=== PATIENT | male | born 1985 | race Caucasian/White ===

== ENCOUNTER 2020-12-10 22:49 | Emergency (ER) | payer OTHER ==
[~2020-12-10] VITALS: Ht 180.3 cm; Wt 102.3 kg
--- NOTE | 2020-12-10 23:13 | PHYS DOC ---
Adult General Chief Complaint Chief Complaint: SHOULDER INJURY [facility] HPI Patient is a 35-year-old male that presents to the emergency department with left shoulder pain, 5 out of 10, dull and achy in nature that happened about 2 hours before coming to the emergency department while he was at work, digging [place] for water. States he was in the middle of digging, and felt a pop in the top of his right shoulder. States that since then he has had pain with range of motion as described. States this is never happened before. Denies any traumas, recent illnesses, chest pain, shortness of breath, abdominal pain, nausea, vomiting. Review of Systems Review of Systems Constitutional: Denies fever or chills [] Eyes: Denies change in visual acuity, redness, or eye pain [] HENT: Denies nasal congestion or sore throat [] Respiratory: Denies cough or shortness of breath [] Cardiovascular: No additional information not addressed in HPI [] GI: Denies abdominal pain, nausea, vomiting, bloody stools or diarrhea [] : Denies dysuria or hematuria [] Musculoskeletal: Denies back pain or joint pain [] Integument: Denies rash or skin lesions [] Neurologic: Denies headache, focal weakness or sensory changes [] Endocrine: Denies polyuria or polydipsia [] All other systems were reviewed and found to be within normal limits, except as documented in this note. Physical Exam Physical Exam Constitutional: Well developed, well nourished, no acute distress, non-toxic appearance. [] HENT: Normocephalic, atraumatic, bilateral external ears normal, oropharynx moist, no oral exudates, nose normal. [] Eyes: conjunctiva normal, no discharge. [] Neck: Normal range of motion, no tenderness, supple, no stridor. [] Cardiovascular:Heart rate regular rhythm Lungs & Thorax: Bilateral breath sounds clear to auscultation [] Skin: Warm, dry, no erythema, no rash. [] Back: No tenderness, Extremities: Patient has tenderness on the superior portion of the left shoulder with pain on range of motion. Patient is able to touch the opposite shoulder and move his left arm behind his back. Neurovascular intact. Neurologic: Alert and oriented X 3, normal motor function, normal sensory function, no focal deficits noted. [] Psychologic: Affect normal, judgement normal, mood normal. [] EKG EKG [] Radiology/Procedures Radiology/Procedures []Left shoulder AP internal axial rotation and scapular x-rays 3 views HISTORY: Left shoulder pain. Injury. FINDINGS: No fracture. No dislocation. No arthritic change. Soft tissues are unremarkable. IMPRESSION: No acute osseous injury. Electronically signed by: Rich Roman MD (12/10/2020 11:51 PM) [facility] Heart Score Risk Factors: Risk Factors: DM, Current or recent (<one month) smoker, HTN, HLP, family history of CAD, obesity. Risk Scores: Risk Factors: DM, Current or recent (<one month) smoker, HTN, HLP, family history of CAD, obesity. Course & Med Decision Making Course & Med Decision Making Patient is a 35-year-old male who presents with left shoulder pain that happened while at work Vital signs not concerning. Physical exam noted above. Imaging with no acute osseous abnormality. Patient denied need for pain medications at this time. Patient placed in sling for pain control. Advised on pain control at home. Advised to follow-up with primary care physician first thing Sunday to discuss ED visit and set up post ER visit. Advised come back to the ED with new or concerning symptoms. Patient grateful, verbalized understanding and agreed with plan of discharge. [] Dragon Disclaimer Dragon Disclaimer This electronic medical record was generated, in whole or in part, using a voice recognition dictation system. Departure Departure: Impression: Primary Impression: Shoulder pain, left Disposition: 01 DC HOME SELF CARE/HOMELESS Condition: GOOD Referrals: PCP,NO (PCP) Patient Instructions: Arm Sling Use, [id number], RICE - Routine Care for Injuries Additional Instructions: Please read the attached information on pain management at home and sling management. Can use Tylenol, ibuprofen, ice and Lidoderm patches [id number] as needed for pain control. Please follow-up first thing Sunday with your primary care physician to discuss your ED visit and need for further evaluation, treatment and imaging. Please come back to the ED with any new or concerning symptoms. BESSIE LARIOS MD Dec 10, 2020 23:13
[2020-12-10 23:20] VITALS: BP 166/95
--- NOTE | 2020-12-10 23:53 | RAD ---
Left shoulder AP internal axial rotation and scapular x-rays 3 views HISTORY: Left shoulder pain. Injury. FINDINGS: No fracture. No dislocation. No arthritic change. Soft tissues are unremarkable. IMPRESSION: No acute osseous injury. Electronically signed by: Rich Roman MD (12/10/2020 11:51 PM) [facility]
== END 2020-12-11 00:20 | disposition home or self-care (01) ==
LOC: ER 22:49
DX: M25.512 Pain in left shoulder (principal)
CPT/HCPCS: 73030; 99283